=== PATIENT | female | born 1975 | race Caucasian/White ===

== ENCOUNTER 2016-12-06 13:57 | Emergency (ER) | payer BC ==
--- NOTE | 2016-12-06 14:41 | Emergency Department Record ---
History of Present Illness - General Chief Complaint: Fever Time Seen by Provider: 12/06/16 14:40 Source: Patient Mode of Arrival: Ambulatory Limitations: No limitations - History of Present Illness Initial Comments: The patient is here due to a 3 day hx of nausea, vomiting, and diarrhea. She also has had body aches, a low grade fever, mild GARCIA and malaise. There is no hx of trauma, injury, cough or dysuria. The patient last had Tylenol 7 hours ago. The patient had the worst of the vomiting and diarrhea yesterday and none today. MD Complaint: Fever, Malaise, Weakness Onset/Timin -: Days(s) Maximum Temperature: 101.0 F Temperature Source: Oral Associated Symptoms: Abdominal pain, Vomiting, Chills, Diarrhea, Headache, Nasal congestion, Nausea, Night sweats Treatments Prior to Arrival: Acetaminophen - Related Data Previous Rx's Medication Instructions Recorded Ondansetron [Zofran Odt] 4 mg SL .Q4-6H PRN #12 tab.rapdis 12/06/16 Allergies Allergy/AdvReac Type Severity Reaction Status Date / Time aspirin AdvReac HIVES Verified 12/06/16 14:35 Travel Screening - Travel/Exposure Within Last 30 Days Have you traveled within the last 30 days?: No - Travel/Exposure Within Last Year Have you traveled outside the [place] in the last year?: No - Additonal Travel Details Have you been exposed to anyone with a communicable illness?: No - Travel Symptoms Symptom Screening: None Review of Systems Constitutional: Denies: Chills, Fever Eyes: Denies: Eye discharge ENT: Denies: Congestion Respiratory: Denies: Cough, Dyspnea Past Medical History - SOCIAL HISTORY Smoking Status: Current every day smoker Alcohol Use: Occassional Drug Use: None - RESPIRATORY Hx Respiratory Disorders: No - CARDIOVASCULAR Hx Cardio Disorders: No - NEURO Hx Neuro Disorders: No - GI Hx GI Disorders: Yes Comment:: Gastric bypass - Hx Genitourinary Disorders: No - ENDOCRINE Hx Endocrine Disorders: No - MUSCULOSKELETAL Hx Musculoskeletal Disorders: No - PSYCH Hx Psych Problems: No - HEMATOLOGY/ONCOLOGY Hx Hematology/Oncology Disorders: No Family Medical History Any Significant Family History?: No Hx Cancer: Mother Physical Exam - General General Appearance: Alert, Oriented x3, Cooperative, No acute distress - Head Head exam: Atraumatic, Normocephalic, Normal inspection - Eye Eye exam: Normal appearance, PERRL - ENT ENT exam: Normal exam, Mucous membranes moist, Normal external ear exam, Normal orophraynx, TM's normal bilaterally Throat exam: Normal inspection. negative: Tonsillar erythema, Tonsillar exudate - Neck Neck exam: Normal inspection, Full ROM. negative: Lymphadenopathy, Meningismus (The neck is very supple.), Tenderness - Respiratory Respiratory exam: Normal lung sounds bilaterally. negative: Respiratory distress - Cardiovascular Cardiovascular Exam: Regular rate, Normal rhythm, Normal heart sounds - GI/Abdominal GI/Abdominal exam: Soft, Normal bowel sounds. negative: Tenderness - Extremities Extremities exam: Normal inspection, Full ROM, Normal capillary refill. negative: Tenderness - Neurological Neurological exam: Alert, Normal gait, Oriented X3. negative: Abnormal gait, Altered, Motor sensory deficit - Psychiatric Psychiatric exam: negative: Agitated, Anxious, Flat affect - Skin Skin exam: negative: Rash Course Vital Signs 12/06/16 13:59 Temperature 100.3 F H Pulse Rate 106 H Respiratory 20 Rate Blood Pressure 104/56 Pulse Ox 96 - Reevaluation(s) Reevaluation #1: The patient is doing much better at this time. She denies any abdominal pain, or nausea or diarrhea. She is feeling hungry now and only has a very mild GARCIA but no neck pain or stiffness. On recheck her temp is 99.0 and her neck is very supple with a neg Kernigs and Brudsinski's reflexes. She is up walking well but does at times feel mildly dizzy. She is doing a lot better presently and feels well enough for home. 12/06/16 16:52 Reevaluation #2: The patient is doing much better at this time. Her temp is now normal and she is up walking normally with no dizziness. There is only a very mild GARCIA over her temples and she denies any nausea or vomiting. She is very hungry and feels MUCH better and would like to go home. 12/06/16 17:17 Medical Decision Making - Data Complexity MDM Data: Labs Ordered and/or Reviewed - Lab Data Result diagrams: 12/06/16 14:56 12/06/16 14:56 Disposition Disposition: Discharge Clinical Impression: Gastroenteritis Disposition: Home, Self-Care Condition: (1) Good Instructions: Fever in Adults (ED), Gastroenteritis (ED), Dehydration (ED) Additional Instructions: Please use the Zofran for nausea and drink plenty of fluids. Take Tylenol for pain and please take 2 days off work. Please return to the ER for any increased pain, temp > 102, vomiting or any confusion. Prescriptions: Ondansetron [Zofran Odt] 4 mg SL .Q4-6H PRN #12 tab.rapdis PRN Reason: Nausea Forms: Patient Portal Access Time of Disposition: 17:22
[2016-12-06] MEDS: ACETAMINOPHEN 325 MG TAB PO ONE (14:59)
[2016-12-06] MEDS: 0.9 % SODIUM CHLORIDE 1,000 ML BAG IV ONE ×2 (15:00→16:14)
[2016-12-06] MEDS: ONDANSETRON HCL IV 4 MG/2 ML VIAL IV ONE (15:00)
[2016-12-06 15:16] LABS: ALB/GLOB RATIO 1.2 (1.1-1.8); ALBUMIN 4.2 gm/dL (3.5-5.0); ALKALINE PHOSPHATASE 76 U/L (38-126); ALT/SGPT 41 U/L (9-52); ANION GAP 8.3 (7-16); AST/SGOT 31 U/L (14-36); BILIRUBIN,TOTAL 0.54 mg/dL (0.2-1.3); BLOOD UREA NITROGEN 12 mg/dL (7-17); CARBON DIOXIDE 24.7 mmol/L (22-30); CREATININE 0.9 mg/dL (0.52-1.04); EST GLOMERULAR FILTRATION RATE > 60 ml/min; GLUCOSE,RANDOM 103 mg/dL (70-110); LIPASE 46 U/L (23-300); TOTAL PROTEIN 7.8 gm/dL (6.3-8.2)
[2016-12-06 15:23] LABS: HEMATOCRIT 43.7 % (35.0-47.0); HEMOGLOBIN 14.8 gm/dl (11.6-16.0); MEAN CELL VOLUME 89.7 fl (81-97); MEAN CORPUSCULAR HEMOGLOBIN 30.4 pg (27-33); MEAN CORPUSCULAR HGB CONC 33.9 g/dl (32-36); MEAN PLATELET VOLUME 11.4 fl (7.4-10.4); PLATELET COUNT 192 K/uL (130-400); RED BLOOD COUNT 4.87 M/uL (3.80-5.40); RED CELL DISTRIBUTION WIDTH 13.2 % (11.5-14.5); WHITE BLOOD COUNT W/O DIFF 7.5 K/uL (4.2-12.2)
[2016-12-06] MEDS: POTASSIUM CHLORIDE 20 MEQ TABLET PO ONE (15:41)
[2016-12-06 16:07] LABS: URINE APPEARANCE CLEAR; URINE BILIRUBIN NEGATIVE (NEGATIVE); URINE BLOOD NEGATIVE (NEGATIVE); URINE COLOR YELLOW; URINE GLUCOSE (UA) NEGATIVE (NEGATIVE); URINE KETONE NEGATIVE (NEGATIVE); URINE LEUKOCYTE ESTERASE NEGATIVE (NEGATIVE); URINE NITRITE NEGATIVE (NEGATIVE); URINE PROTEIN NEGATIVE (NEGATIVE); URINE UROBILINOGEN 0.2 E.U./dL (0.20 - 1.00)
[2016-12-06] MEDS: KETOROLAC 30 MG/ML VIAL IVP ONE (16:14)
[2016-12-06 16:26] LABS: HCG,QUALITATIVE URINE NEGATIVE (NEGATIVE)
== END 2016-12-06 17:36 | disposition home or self-care (01) ==
LOC: ER 13:57
DX: K52.9 Noninfective gastroenteritis and colitis, unspecified (principal); E86.0 Dehydration; F17.200 Nicotine dependence, unspecified, uncomplicated
CPT/HCPCS: 80053; 81003; 81025; 83690; 85027; 86140; 96361; 96374; 96375; 99283; 99284; J1885; J2405; J7030

== ENCOUNTER 2018-05-06 09:31 | Emergency (ER) | payer BC, OTHER ==
[2018-05-06 10:17] LABS: HEMATOCRIT 45.4 % (35.0-47.0); HEMOGLOBIN 14.9 gm/dl (11.6-16.0); MEAN CELL VOLUME 91.3 fl (81-97); MEAN CORPUSCULAR HGB CONC 32.8 g/dl (32-36); MEAN PLATELET VOLUME 11.2 fl (7.4-10.4); PLATELET COUNT 280 K/uL (130-400); RED BLOOD COUNT 4.97 M/uL (3.80-5.40); RED CELL DISTRIBUTION WIDTH 13.5 % (11.5-14.5); WHITE BLOOD COUNT W/O DIFF 10.2 K/uL (4.2-12.2)
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
== END 2018-05-06 10:44 | disposition home or self-care (01) ==
LOC: ER 09:31
DX: S20.219A Contusion of unspecified front wall of thorax, initial encounter (principal); V40.1XXA Car passenger injured in collision with pedestrian or animal in nontraffic accident, initial encounter; F17.210 Nicotine dependence, cigarettes, uncomplicated
CPT/HCPCS: 85027; 99283